=== PATIENT | female | born 1940 | race Caucasian/White ===

== ENCOUNTER 2024-02-09 06:52 | Emergency (ER) | payer MEDICARE, OTHER, SELFPAY ==
[2024-02-09 06:53] VITALS: BP 162/99
--- NOTE | 2024-02-09 07:00 | ED.GENMED ---
History of Present Illness
General
Chief Complaint: DVT/Possible Blood Clot
Time Seen by Provider: 02/09/24 07:00
Travel History
Have you had any contact with someone who has COVID-19?: No
Do you have any symptoms of coronavirus? Fever > 100 degrees, chills, cough, shortness of breath, sore throat, loss of taste or smell, muscle aches, or headache?: No
History of Present Illness
History of Present Illness:
HPI: The patient presents due to left calf pain. This is primarily located in the anterolateral aspect of the left leg. She reports no injury. She has not taken anything for pain. She denies any chest pain or shortness of breath. She was
concerned about the possibility of a blood clot.
EXAM:
GENERAL: Well appearing in no distress
HEENT: Moist oral mucosa
CARDIOVASCULAR: No murmurs, normal heart rate, regular rhythm, No chest wall tenderness
PULMONARY: No respiratory distress, breath sounds are clear and equal
ABDOMEN: Soft with no peritoneal signs, no tenderness
NEUROLOGIC: Excellent strength all extremities, no coordination deficits
PSYCHIATRIC: Appropriate mental status, normal insight and judgement
EXTREMITIES: Nontender, no edema, moves all extremities equally, there may be minimal if any tenderness to the anterolateral aspect of the midpoint of the left tib-fib region
SKIN: No rash, no lesions
TIME OF INITIAL ENCOUNTER: 7 AM
NUMBER AND COMPLEXITY OF PROBLEMS ADDRESSED AT THE ENCOUNTER
� Chronic conditions affecting care: High blood pressure, hyperlipidemia, IBS, hypothyroidism, breast cancer
� Acute Exacerbation and/or Progression of Chronic Illness: This is an acute problem
� Differential Diagnosis includes: DVT, lymphedema, superficial thrombophlebitis unlikely based on physical examination, muscle strain, shinsplints, no evidence for compartment syndrome, no sign of infection
AMOUNT AND/OR COMPLEXITY OF DATA TO BE REVIEWED AND ANALYZED
� I performed an independent evaluation of and my interpretation is:
EKG:
CT:
X-rays:
Laboratory Studies:
Other: Ultrasound imaging shows no sign of blood clot
� Review of other/old records: No old records available for review
� Clinical information was obtained by an independent historian: None needed
� Prescriptions/Medications Considered but not given:
� Further testing considered but not performed:
RISK OF COMPLICATIONS AND/OR MORBIDITY OR MORTALITY OF PATIENT MANAGEMENT
� Social determinants of health affecting care: Lives at home, drove herself here
� Discussion with other:
� Escalation of care including admission/observation vs risk of discharge considered: The patient does have somewhat unexplained discomfort to the anterolateral aspect of the left [place]. Will obtain ultrasound imaging�this was
negative. Unclear etiology of patient's symptoms but the physical exam is relatively unremarkable. She appears very comfortable on reassessment at 8 AM.
Phy Exam
Physical Exam
Physical Exam:
See HPI
Course
Orders/Labs/Results
Orders:
Orders
02/09/24 07:01
US Legs, Left [US Periph Venous LOWER Ext LT] Urgent
Comment:
Reason For Exam: pain
02/09/24 07:06
Acetaminophen [Tylenol] 650 mg PO NOW STA
Vital Signs
Initial and Last Documented VS:
Initial Vital Signs
Temp Pulse Resp BP Pulse Ox
97.7 F 79 18 162/99 99
02/09/24 06:53 02/09/24 06:53 02/09/24 06:53 02/09/24 06:53 02/09/24 06:53
Last Documented Vital Signs
Temp Pulse Resp BP Pulse Ox
97.7 F 82 16 153/72 99
02/09/24 06:53 02/09/24 08:31 02/09/24 08:31 02/09/24 08:31 02/09/24 08:31
*Critical Care Note
Total Time (30-74mins, 75-104mins- exclusive of procedures): Not Applicable
ED Attending Note
-
Portions of this chart may have been created with voice recognition software.� Occasional wrong word or��sound alike� substitutions may have occurred due to the inherent limitations of voice recognition software.
Discharge Plan
Departure
Patient Disposition: Home (Routine Discharge)
Date of Disposition: 02/09/24
Time of Disposition: 07:57
Patient with high blood pressure during this ER visit?: Yes
Discharge Problem:
Left leg pain
Activity Restrictions/Additional Instructions:
You have excellent blood flow in the arteries of the left leg. Also, there is no sign of blood clot in the left leg in the veins. The cause of your symptoms is unclear. Follow-up your primary care doctor.
Interventions
Interventions:
*Risk Screen - Suicide Last Done: 02/09/24 07:11
*General Assessment Last Done: 02/09/24 07:11
*Neglect/Abuse Screening Last Done: 02/09/24 07:11
ED- Fall Risk Assessment Last Done: 02/09/24 07:11
*ED COVID-19 Vaccine History Last Done: 02/09/24 06:53
*Nursing Disposition Last Done: 02/09/24 08:33
ED- Cardiac Assessment Last Done: 02/09/24 07:18
ED- Pulmonary Assessment Last Done: 02/09/24 07:19
ED-Peripheral Vascular Assessment Last Done: 02/09/24 07:19
ED-Skin Assessment Last Done: 02/09/24 07:19
Discharge Date and Time
Discharge Date/Time: 02/09/24 08:34
Print Language: PANAMANIAN
[2024-02-09 07:11] VITALS: BMI 18.0
[2024-02-09] MEDS: TYLENOL 650 MG PO (07:16)
[2024-02-09 07:17] VITALS: BP 129/67
--- NOTE | 2024-02-09 08:00 | EDRN ---
Dr. Javier in room w/ pt at this time.
[2024-02-09 08:31] VITALS: BP 153/72
== END 2024-02-09 08:34 | disposition home or self-care (01) ==
LOC: EMR 06:52
PROVIDERS: EMERGENCY PHYSICIAN Emergency Medicine; FAMILY PHYSICIAN Family Medicine
DX: M79.662 Pain in left lower leg (principal); R03.0 Elevated blood-pressure reading, without diagnosis of hypertension; E78.5 Hyperlipidemia, unspecified; K58.9 Irritable bowel syndrome, unspecified; E03.9 Hypothyroidism, unspecified
CPT/HCPCS: 99284; 93971